=== PATIENT | female | born 1960 | race Caucasian/White ===

== ENCOUNTER 2022-12-01 01:35 | Emergency (ER) | payer BC ==
[2022-12-01] MEDS ORDERED: Losartan 50 MG Tab PO ONE (02:01)
== END 2022-12-01 07:00 | disposition home or self-care (01) ==
LOC: LB.ED 01:35
DX: I10 Essential (primary) hypertension (principal); K21.9 Gastro-esophageal reflux disease without esophagitis; F17.210 Nicotine dependence, cigarettes, uncomplicated; Z79.899 Other long term (current) drug therapy
CPT/HCPCS: 36415; 80053; 99283; A9270-GY

== ENCOUNTER 2022-12-04 22:35 | Emergency (ER) | payer BC ==
[2022-12-04] MEDS ORDERED: Metoprolol Succinate 50 MG Tab.ER PO ONE (23:13)
[2022-12-04] MEDS ORDERED: Metoprolol Succinate 50 MG Tab.ER ONE (23:30)
== END 2022-12-05 00:11 | disposition home or self-care (01) ==
LOC: LB.ED 22:35
DX: F41.9 Anxiety disorder, unspecified (principal); I10 Essential (primary) hypertension; Z79.899 Other long term (current) drug therapy; Z72.0 Tobacco use
CPT/HCPCS: 99283; A9270-GY